=== PATIENT | female | born 1935 | race Caucasian/White ===

== ENCOUNTER 2018-04-19 10:33 | Emergency (ER) | payer MEDICARE, OTHER ==
[2018-04-19] MEDS ORDERED: Acetaminophen/HYDROcodone 325-5 MG Tab PO ONE (12:21)
--- NOTE | 2018-04-19 12:36 | EDM.PDOC ---
ED HPI GENERAL MEDICAL PROBLEM - General Chief Complaint: Upper Extremity Injury/Pain Stated Complaint: LEFT ARM INJURY Time Seen by Provider: 04/19/18 10:57 Source of Information: Reports: Patient History Limitations: Reports: No Limitations - History of Present Illness INITIAL COMMENTS - FREE TEXT/NARRATIVE: The patient was at [employer] today and she was going up for Shoulder Tap and she tripped on the carpet and fell and landed on her left arm and leg. She did not hit her head and she has no neck pain. She has pain to her left shoulder and left knee. She has no chest pain, abdominal pain, nausea or vomiting. She has no hip pain. Onset: Sudden Duration: Minutes: Location: Reports: Upper Extremity, Left (Shoulder), Lower Extremity, Left (Knee ) Quality: Reports: Sharp Severity: Moderate Improves with: Reports: Immobilization Worsens with: Reports: Movement Context: Reports: Activity (She tripped and fell while going up to Shoulder Tap) Treatments [employer]: Reports: Acetaminophen, Cold Therapy Left Middle Arm Pain Score (Numeric/FACES): 5 - Related Data Allergies Allergy/AdvReac Type Severity Reaction Status Date / Time No Known Allergies Allergy Verified 04/19/18 10:55 Home Meds: Home Meds Hydrocodone/Acetaminophen [Hydrocodon-Acetaminophen 5-325] 1 - 2 each PO Q6HR PRN #20 tablet 04/19/18 [Rx] Past Medical History - Past Health History Medical/Surgical History: Denies Medical/Surgical History Cardiovascular History: Reports: High Cholesterol, Hypertension Musculoskeletal History: Reports: Neck Pain, Chronic Endocrine/Metabolic History: Reports: Hypothyroidism - Infectious Disease History Infectious Disease History: Reports: Chicken Pox - Past Surgical History Female Surgical History: Reports: Other (See Below) Other Female Surgeries/Procedures: bladder sling Social & Family History - Family History Family Medical History: Noncontributory - Tobacco Use Smoking Status *Q: Former Smoker Years of Tobacco use: 40 Packs/Tins Daily: 1 Used Tobacco, but Quit: Yes Month/Year Tobacco Last Used: 1 Second Hand Smoke Exposure: No - Caffeine Use Caffeine Use: Reports: Coffee, Soda, Tea - Recreational Drug Use Recreational Drug Use: No Review of Systems - Review of Systems Review Of Systems: See Below Constitutional: Reports: No Symptoms Eyes: Reports: No Symptoms Ears: Reports: No Symptoms Nose: Reports: No Symptoms Mouth/Throat: Reports: No Symptoms Respiratory: Reports: No Symptoms Cardiovascular: Reports: No Symptoms GI/Abdominal: Reports: No Symptoms Genitourinary: Reports: No Symptoms Musculoskeletal: Reports: Other (Left shoulder pain and left knee pain) ED EXAM, GENERAL - Physical Exam Exam: See Below Exam Limited By: No Limitations General Appearance: Alert, No Apparent Distress Ears: Normal External Exam Nose: Normal Inspection Head: Atraumatic, Normocephalic Neck: Normal Inspection Respiratory/Chest: No Respiratory Distress, Lungs Clear, Normal Breath Sounds Cardiovascular: Regular Rate, Rhythm, No Edema, No Murmur GI/Abdominal: Soft, Non-Tender, No Organomegaly, No Mass Back Exam: Normal Inspection Extremities: Other (Pain upon palpation to the left shoulder. Good sensation and pulses distally. Pain upon palpaton to the left knee with mild edema. Good sensation and pulses distally.) Neurological: Alert, Oriented, No Motor/Sensory Deficits Course - Vital Signs Last Recorded V/S: Last Vital Signs Temp 98.4 F 04/19/18 10:56 Pulse 67 04/19/18 10:56 Resp 16 04/19/18 10:56 BP 174/81 H 04/19/18 10:56 Pulse Ox 93 L 04/19/18 10:56 - Orders/Labs/Meds Orders: Active Orders 24 hr Category Date Time Status Knee Min 4V Lt [CR] Stat Exams 04/19/18 11:13 Taken Shoulder Comp Lt [CR] Stat Exams 04/19/18 11:12 Taken Durable Medical Equipment for Discharge [DME for Oth 04/19/18 12:30 Ordered Discharge] [COMM] Stat Meds: Medications Discontinued Medications Generic Name Dose Route Start Last Admin Trade Name Robert PRN Reason Stop Dose Admin Hydrocodone Bitart/Acetaminophen 1 tab 04/19/18 12:21 04/19/18 12:28 [place] 325-5 Mg PO 04/19/18 12:22 1 tab ONETIME ONE Administration - Re-Assessments/Exams Free Text/Narrative Re-Assessment/Exam: 04/19/18 12:35 The x-ray of her left knee shows mild degenerative changes. The x-ray of her left shoulder shows a proximal humerus fracture. I ordered a hydrocodone for pain. I will get her in a shoulder immobilizer and have her follow up with our orthopedic surgeon. Departure - Departure Time of Disposition: 12:40 Disposition: Home, Self-Care 01 Condition: Good Clinical Impression: Fall Qualifiers: Encounter type: initial encounter Qualified Code(s): W19.XXXA - Unspecified fall, initial encounter Contusion of left knee Qualifiers: Encounter type: initial encounter Qualified Code(s): S80.02XA - Contusion of left knee, initial encounter Fracture of proximal end of left humerus Qualifiers: Encounter type: initial encounter Fracture type: closed Fracture morphology: unspecified fracture morphology Qualified Code(s): S42.202A - Unspecified fracture of upper end of left humerus, initial encounter for closed fracture - Discharge Information Prescriptions: Hydrocodone/Acetaminophen [Hydrocodon-Acetaminophen 5-325] 1 - 2 each PO Q6HR PRN #20 tablet PRN Reason: Pain Referrals: David Barreto MD [Primary Care Provider] - Manolo Wise MD [Physician] - 1 Week Additional Instructions: Wear the shoulder immobilizer. Ice your shoulder for 15 minutes every other hour while you are awake. Take motrin or tylenol for pain. If that does not help, you can try a hydrocodone for pain. Follow up with Dr Wise within the week. Please return if you are worse. - My Orders Last 24 Hours: My Active Orders 04/19/18 11:12 Shoulder Comp Lt [CR] Stat 04/19/18 11:13 Knee Min 4V Lt [CR] Stat 04/19/18 12:30 Durable Medical Equipment for Discharge [DME for Discharge] [COMM] Stat - Assessment/Plan Last 24 Hours: My Active Orders 04/19/18 11:12 Shoulder Comp Lt [CR] Stat 04/19/18 11:13 Knee Min 4V Lt [CR] Stat 04/19/18 12:30 Durable Medical Equipment for Discharge [DME for Discharge] [COMM] Stat
--- NOTE | 2018-04-20 08:54 | CR ---
Left shoulder: Four views of the left shoulder were obtained. Comparison: No prior shoulder study. Fracture is identified through the surgical neck as well as additional fracture involving the base of the greater tuberosity. Mild displacement is seen up to 6.5 mm. No dislocation is seen. No additional fracture or other abnormality is identified. Impression: 1. Left proximal humeral fracture as described above. Diagnostic code #3
--- NOTE | 2018-04-20 08:54 | CR ---
Left knee: Four views of the left knee were obtained. Comparison: No previous study. Moderate medial joint space narrowing is noted. Mild osteophytes are seen medially. Lateral joint space is preserved. Minimal spur off the superior patella is seen. No joint effusion is seen. No acute fracture or other bony abnormality is seen. Slight vascular calcification is present. Impression: 1. Degenerative change as described above. 2. No acute bony abnormality is identified. Diagnostic code #2
== END 2018-04-19 12:46 | disposition home or self-care (01) ==
LOC: JD.ED 10:33
DX: S42.202A Unspecified fracture of upper end of left humerus, initial encounter for closed fracture (principal); S80.02XA Contusion of left knee, initial encounter; E78.00 Pure hypercholesterolemia, unspecified; I10 Essential (primary) hypertension; E03.9 Hypothyroidism, unspecified; Z87.891 Personal history of nicotine dependence; W01.0XXA Fall on same level from slipping, tripping and stumbling without subsequent striking against object, initial encounter
CPT/HCPCS: 73030; 73564; 99284; A9270; 99283